=== PATIENT | female | born 1945 | race Caucasian/White ===

== ENCOUNTER 2017-11-16 18:14 | Emergency (ER) | payer OTHER ==
[~2017-11-16] VITALS: Ht 170.2 cm; Wt 63.5 kg
[2017-11-16] MEDS ORDERED: SYNTHROID137 MCG (18:44)
[2017-11-16] MEDS ORDERED: PHENOBARBITAL64.8 MG (18:44)
== END 2017-11-16 20:20 | disposition home or self-care (01) ==
LOC: ER 18:14
DX: S01.121A Laceration with foreign body of right eyelid and periocular area, initial encounter (principal); W18.39XA Other fall on same level, initial encounter; Y93.89 Activity, other specified; Y92.488 Other paved roadways as the place of occurrence of the external cause; Y99.8 Other external cause status

== ENCOUNTER 2017-11-25 08:10 | Emergency (ER) | payer OTHER ==
[~2017-11-25] VITALS: Ht 170.2 cm; Wt 63.5 kg
[~2017-11-25 08:10] MED LIST: PHENOBARBITAL64.8 MG; SYNTHROID137 MCG
== END 2017-11-25 08:46 | disposition home or self-care (01) ==
LOC: ER 08:10
DX: Z48.02 Encounter for removal of sutures (principal)